=== PATIENT | female | born 1985 | race American Indian/Alaskan Native ===

== ENCOUNTER 2016-12-27 13:21 | Emergency (ER) | payer SELFPAY ==
[2016-12-27 13:29] VITALS: BP 139/88
[2016-12-27] MEDS ORDERED: BENADRYL IM ONE (17:58)
[2016-12-27] MEDS ORDERED: BOOSTRIX IM ONE (17:58)
--- NOTE | 2016-12-27 18:03 | Emergency Department Report ---
ED General Adult HPI - General Chief complaint: Skin/Abscess/Foreign Body Stated complaint: POSS SPIDER BITE Time Seen by Provider: 12/27/16 17:38 Source: patient Mode of arrival: Ambulatory Limitations: No Limitations - History of Present Illness Initial comments: PT states she was seen last year for this and she was dx with bed bugs. PT states her and her boyfriend and their baby live in a hotel. PT states she is the only one who keeps breaking out in rashes. Pt states she is scratching until she bleeds and sometimes the spots have yellow drainage. PT denies use of drugs. PT denies currently being treated with antibiotics. MD Complaint: rash/ itching Onset/Timin -: Gradual, month(s) Location: abdomen, upper extremity, lower extremity Radiation: non-radiation Severity scale (0 -10): 0 Quality: other (itchy, manning when scratched ) Consistency: intermittent Improves with: none Worsens with: none Associated Symptoms: denies: chest pain, fever/chills, nausea/vomiting Treatments Prior to Arrival: none - Related Data Previous Rx's Medication Instructions Recorded Last Taken Type ALBUTEROL Inhaler [ProAir HFA 2 puff IH QID PRN #1 inhalation 12/22/13 Unknown Rx Inhaler] Ciprofloxacin HCl [Ciprofloxacin 500 mg PO BID #14 tablet 03/24/14 Unknown Rx TAB] HYDROcodone/APAP 7.5-325 [[place] 1 each PO Q6HR PRN #30 tablet 06/21/14 Unknown Rx 7.5/325 mg] Acetaminophen/Codeine [Tylenol #3] 1 tab PO Q6H PRN #15 tab 01/26/15 Unknown Rx Cephalexin [Keflex] 500 mg PO BID #14 capsule 01/26/15 Unknown Rx Ibuprofen [Motrin 600 MG tab] 600 mg PO Q8H PRN #50 tablet 03/11/15 Unknown Rx metroNIDAZOLE [Flagyl] 500 mg PO BID #20 tablet 03/11/15 Unknown Rx Diazepam Tab [Valium] 5 mg PO QHS PRN #3 tab 08/25/16 Unknown Rx Permethrin 5% [Acticin 5% CREAM] 1 applicatio TP ONCE #1 tube 08/25/16 Unknown Rx hydrOXYzine PAMOATE [Vistaril] 50 mg PO Q6HR PRN #15 capsule 08/25/16 Unknown Rx Allergies Allergy/AdvReac Type Severity Reaction Status Date / Time No Known Allergies Allergy Verified 08/25/16 07:38 ED Review of Systems ROS: Stated complaint: POSS SPIDER BITE Other details as noted in HPI Comment: All other systems reviewed and negative Constitutional: denies: fever Gastrointestinal: denies: abdominal pain, nausea, vomiting Genitourinary: other (bleeding, last day of cycle today ) Skin: as per HPI, rash ED Past Medical Hx - Past Medical History Hx Psychiatric Treatment: Yes (ANXIETY) Hx Asthma: Yes Additional medical history: fibroid - Surgical History Past Surgical History?: No - Social History Smoking Status: Current Every Day Smoker Substance Use Type: None - Medications Home Medications: Home Medications Medication Instructions Recorded Confirmed Last Taken Type ALBUTEROL Inhaler [ProAir HFA 2 puff IH QID PRN #1 inhalation 12/22/13 Unknown Rx Inhaler] Ciprofloxacin HCl [Ciprofloxacin 500 mg PO BID #14 tablet 03/24/14 Unknown Rx TAB] HYDROcodone/APAP 7.5-325 [[place] 1 each PO Q6HR PRN #30 tablet 06/21/14 Unknown Rx 7.5/325 mg] Acetaminophen/Codeine [Tylenol #3] 1 tab PO Q6H PRN #15 tab 01/26/15 Unknown Rx Cephalexin [Keflex] 500 mg PO BID #14 capsule 01/26/15 Unknown Rx Ibuprofen [Motrin 600 MG tab] 600 mg PO Q8H PRN #50 tablet 03/11/15 Unknown Rx metroNIDAZOLE [Flagyl] 500 mg PO BID #20 tablet 03/11/15 Unknown Rx Diazepam Tab [Valium] 5 mg PO QHS PRN #3 tab 08/25/16 Unknown Rx Permethrin 5% [Acticin 5% CREAM] 1 applicatio TP ONCE #1 tube 08/25/16 Unknown Rx hydrOXYzine PAMOATE [Vistaril] 50 mg PO Q6HR PRN #15 capsule 08/25/16 Unknown Rx ED Physical Exam - General Limitations: No Limitations General appearance: alert, in no apparent distress - Head Head exam: Present: atraumatic, normocephalic - Eye Eye exam: Present: normal appearance - ENT ENT exam: Present: normal exam, normal external ear exam - Neck Neck exam: Present: normal inspection, full ROM. Absent: tenderness - Respiratory Respiratory exam: Present: normal lung sounds bilaterally. Absent: respiratory distress, wheezes, chest wall tenderness - Cardiovascular Cardiovascular Exam: Present: regular rate, normal heart sounds - GI/Abdominal GI/Abdominal exam: Present: soft. Absent: tenderness - Extremities Exam Extremities exam: Present: full ROM, normal capillary refill. Absent: tenderness - Neurological Exam Neurological exam: Present: alert, oriented X3 - Psychiatric Psychiatric exam: Present: normal affect - Skin Skin exam: Present: warm, dry, other (pt appears to have bed bug bites to upper and lower ext. multiple areas excoriated with broken skin, no surrounding cellulitis noted) ED Course Vital Signs 12/27/16 13:25 Temperature 97.8 F Pulse Rate 109 H Respiratory 18 Rate Blood Pressure 139/88 O2 Sat by Pulse 100 Oximetry - Reevaluation(s) Reevaluation #1: 12/27/16 18:06 PT has no rash to palms or finger webbing. No close contacts with similar rash. rash is difficult to exam due to how much pt has scratched. multiple areas of broken skin. will up date pt's td vaccine and treat her pruritus with Benadryl. PT aware that rash is concerning for bed bugs. PT has a hx of bed bugs and states it feels the same. - Pulse Oximetry Interpretation Digit-Finger Initial Pulse Oximetry Readin Actions Taken: none ED Medical Decision Making - Differential Diagnosis scabies, bed bugs, urticaria Critical care attestation.: If time is entered above; I have spent that time in minutes in the direct care of this critically ill patient, excluding procedure time. ED Disposition Clinical Impression: Rash and nonspecific skin eruption Bed bug bite Qualifiers: Encounter type: initial encounter Qualified Code(s): W57.XXXA - Bitten or stung by nonvenomous insect and other nonvenomous arthropods, initial encounter Disposition: DISCHARGED TO HOME OR SELFCARE Is pt being admited?: No Does the pt Need Aspirin: No Condition: Stable Instructions: Insect Bite or Sting (ED) Additional Instructions: Wash bedding Sleep in long sleeves and long pants Follow up with PCP in 2-3 days No driving or ETOH with Vistaril Referrals: PRIMARY CARE,MD [Primary Care Provider] - 3-5 Days
== END 2016-12-27 18:22 | disposition home or self-care (01) ==
LOC: ED 13:21
DX: R21 Rash and other nonspecific skin eruption (principal); F41.9 Anxiety disorder, unspecified; J45.909 Unspecified asthma, uncomplicated; F17.200 Nicotine dependence, unspecified, uncomplicated; W57.XXXA Bitten or stung by nonvenomous insect and other nonvenomous arthropods, initial encounter; Y92.89 Other specified places as the place of occurrence of the external cause
CPT/HCPCS: 90471; 90715; 96372; 99282; J1200

== ENCOUNTER 2017-01-20 20:23 | Emergency (ER) | payer SELFPAY ==
[2017-01-20 22:24] VITALS: BP 128/98
[2017-01-21] MEDS ORDERED: DECADRON IM STA (02:23)
--- NOTE | 2017-01-21 02:23 | Emergency Department Report ---
- General Chief complaint: Skin Rash Stated complaint: BED BUGS Time Seen by Provider: 01/21/17 01:55 Source: patient, family Mode of arrival: Ambulatory Limitations: No Limitations - History of Present Illness Initial comments: Patient here complaining off rash in her arms or legs and all over her body and feces retention. She denies any pain. She said the pain going on for over a year and she's been seen here and he told that she has scabies she did see her. Prateek and he told that she had bedbugs. She never followed up with escalator attendant pain is 0 out of 10. Patient is not having any wheezing, cough and difficulty breathing, chest pain or shortness of breath. She was placed on antibiotic on 12/27/16 along with hydroxyzine December 27, 2016. Patient says she is itching area and is causing it to be worse. She says she doesn't have any idea if she has bedbugs in her house. MD complaint: rash, other (itching) Onset/Timin -: year(s) Tetanus Up to Date: yes Location: generalized Severity scale (0 -10): 0 Context: none Associated symptoms: denies other symptoms Treatments Prior to Arrival: OTC topical medication - Related Data Previous Rx's Medication Instructions Recorded Last Taken Type ALBUTEROL Inhaler [ProAir HFA 2 puff IH QID PRN #1 inhalation 12/22/13 Unknown Rx Inhaler] Cephalexin [Keflex] 500 mg PO Q6HR #40 capsule 12/27/16 Unknown Rx hydrOXYzine PAMOATE [Vistaril] 25 mg PO Q6HR PRN #24 capsule 01/21/17 Unknown Rx methylPREDNISolone [Medrol] 4 mg PO QAM #1 tab.ds.pk 01/21/17 Unknown Rx Allergies Allergy/AdvReac Type Severity Reaction Status Date / Time No Known Allergies Allergy Verified 08/25/16 07:38 Abscess Boil HPI - HPI Chief Complaint: Skin Rash Stated Complaint: BED BUGS Time Seen by Provider: 01/21/17 01:55 Home Medications: Previous Rx's Medication Instructions Recorded Last Taken Type ALBUTEROL Inhaler [ProAir HFA 2 puff IH QID PRN #1 inhalation 12/22/13 Unknown Rx Inhaler] Cephalexin [Keflex] 500 mg PO Q6HR #40 capsule 12/27/16 Unknown Rx hydrOXYzine PAMOATE [Vistaril] 25 mg PO Q6HR PRN #24 capsule 01/21/17 Unknown Rx methylPREDNISolone [Medrol] 4 mg PO QAM #1 tab.ds.pk 01/21/17 Unknown Rx Allergies/Adverse Reactions: Allergies Allergy/AdvReac Type Severity Reaction Status Date / Time No Known Allergies Allergy Verified 08/25/16 07:38 ED Review of Systems ROS: Stated complaint: BED BUGS Other details as noted in HPI Comment: All other systems reviewed and negative Constitutional: denies: chills, fever, malaise ENT: denies: throat pain, congestion Respiratory: no symptoms reported Cardiovascular: denies: chest pain, palpitations, edema, syncope Gastrointestinal: denies: abdominal pain, nausea, vomiting Skin: rash, lesions, pruritus Neurological: denies: headache ED Past Medical Hx - Past Medical History Previous Medical History?: Yes Hx Psychiatric Treatment: Yes (ANXIETY) Hx Asthma: Yes Additional medical history: fibroid. Chronic rash - Surgical History Past Surgical History?: No - Family History Family history: hypertension - Social History Smoking Status: Current Every Day Smoker Substance Use Type: None - Medications Home Medications: Home Medications Medication Instructions Recorded Confirmed Last Taken Type ALBUTEROL Inhaler [ProAir HFA 2 puff IH QID PRN #1 inhalation 12/22/13 Unknown Rx Inhaler] Cephalexin [Keflex] 500 mg PO Q6HR #40 capsule 12/27/16 Unknown Rx hydrOXYzine PAMOATE [Vistaril] 25 mg PO Q6HR PRN #24 capsule 01/21/17 Unknown Rx methylPREDNISolone [Medrol] 4 mg PO QAM #1 tab.ds.pk 01/21/17 Unknown Rx ED Physical Exam - General Limitations: No Limitations General appearance: alert, in no apparent distress - Head Head exam: Present: atraumatic, normocephalic, normal inspection - Eye Eye exam: Present: normal appearance, PERRL, EOMI Pupils: Present: normal accommodation - ENT ENT exam: Present: normal exam, normal orophraynx, mucous membranes moist, TM's normal bilaterally, normal external ear exam - Neck Neck exam: Present: normal inspection, tenderness, full ROM. Absent: meningismus, lymphadenopathy - Respiratory Respiratory exam: Present: normal lung sounds bilaterally. Absent: respiratory distress, wheezes, rales, rhonchi, stridor, chest wall tenderness - Cardiovascular Cardiovascular Exam: Present: regular rate, normal rhythm, normal heart sounds - GI/Abdominal GI/Abdominal exam: Present: soft, normal bowel sounds. Absent: distended, tenderness, guarding, rebound, rigid - Extremities Exam Extremities exam: Present: normal inspection, full ROM, normal capillary refill. Absent: tenderness, pedal edema, joint swelling, calf tenderness - Neurological Exam Neurological exam: Present: alert, oriented X3, normal gait, reflexes normal. Absent: motor sensory deficit - Psychiatric Psychiatric exam: Present: normal affect, normal mood - Skin Skin exam: Present: warm, dry, rash. Absent: erythema, urticaria - Expanded Skin Exam Expanded Type of lesion: Present: rash Distribution of rash: thorax, chest, back, abdomen, RUE, LUE, RLE, LLE Description of rash: Present: other (Diachlor on spot spices scattered to the thorax, chest, back, abdomen right upper and lower and left upper extremity. No signs of infection noted.). Absent: tenderness, erythematous, swelling, vesicular, blisters, urticarial, crusting, discharge, fluctuant, indurated ED Course Vital Signs 01/20/17 01/21/17 22:18 04:46 Temperature 98 F Pulse Rate 103 H 98 H Respiratory 20 18 Rate Blood Pressure 128/98 Blood Pressure 128/98 [Left] O2 Sat by Pulse 100 Oximetry - Reevaluation(s) Reevaluation #1: 01/21/17 04:03 Patient given Decadron 10 mg IM and emergency room to help with itching. ED Medical Decision Making - Medical Decision Making ED course: Given Decadron 10 mg IM to help condition. Patient has been referred to escalator attendant several times as she has not gone. Discussed with patient that she needs to escalator attendant in 2-3 days for follow-up chronic rash and itching. Patient was understanding of need for follow-up. Patient given prescription for prednisone and Atarax. Home in stable condition. Critical care attestation.: If time is entered above; I have spent that time in minutes in the direct care of this critically ill patient, excluding procedure time. ED Disposition Clinical Impression: Rash and nonspecific skin eruption, Pruritus and related conditions Disposition: DISCHARGED TO HOME OR SELFCARE Is pt being admited?: No Does the pt Need Aspirin: No Condition: Stable Instructions: Contact Dermatitis (ED), Itchy Skin (ED) Additional Instructions: Please keep affected area clean and dry. Medication as prescribed and note that Atarax can cause drowsiness. He is to not drive or operate heavy machinery while taking Atarax Follow up with escalator attendant as instructed Prescriptions: hydrOXYzine PAMOATE [Vistaril] 25 mg PO Q6HR PRN #24 capsule PRN Reason: Itching methylPREDNISolone [Medrol] 4 mg PO QAM #1 tab.ds.pk Referrals: MARTHA LUEVANO MD [Staff Physician] - 2-3 Days [facility] [Outside] - 2-3 Days Forms: Work/School Release Form(ED)
== END 2017-01-21 04:48 | disposition home or self-care (01) ==
LOC: ED 20:23
DX: L29.9 Pruritus, unspecified (principal); F41.9 Anxiety disorder, unspecified; J45.909 Unspecified asthma, uncomplicated; F17.200 Nicotine dependence, unspecified, uncomplicated; D21.9 Benign neoplasm of connective and other soft tissue, unspecified; Z79.899 Other long term (current) drug therapy
CPT/HCPCS: 96372; 99282; J1100

== ENCOUNTER 2017-02-10 20:16 | Emergency (ER) | payer SELFPAY ==
[2017-02-10] MEDS ORDERED: TYLENOL ONE (22:38)
[2017-02-10] MEDS ORDERED: TYLENOL PO ONE (22:41)
[2017-02-11 00:13] VITALS: BP 107/77
[2017-02-11] MEDS ORDERED: XYLOCAINE 1%/ EPI 1:100,000 INFILTRATI ONE (02:16)
--- NOTE | 2017-02-11 02:25 | Emergency Department Report ---
Abscess Boil HPI - HPI Chief Complaint: Skin/Abscess/Foreign Body Stated Complaint: INSECT BITE Duration: 2 Days Location: Head Severity: Mild History: Yes Pain, No Fever, No Purulent Drainage, No Numbness, No Foreign Body , No Previous History, No Insect Bite HPI: 31 year old female presents to ED with simple abscess on right side of forehead. patient states she is currently on day 2 of bactrim prescription which she got from [facility]. patient is stable, neurologically intact and in no acute distress. Home Medications: Previous Rx's Medication Instructions Recorded Last Taken Type ALBUTEROL Inhaler [ProAir HFA 2 puff IH QID PRN #1 inhalation 12/22/13 Unknown Rx Inhaler] Cephalexin [Keflex] 500 mg PO Q6HR #40 capsule 12/27/16 Unknown Rx hydrOXYzine PAMOATE [Vistaril] 25 mg PO Q6HR PRN #24 capsule 01/21/17 Unknown Rx methylPREDNISolone [Medrol] 4 mg PO QAM #1 tab.ds.pk 01/21/17 Unknown Rx Allergies/Adverse Reactions: Allergies Allergy/AdvReac Type Severity Reaction Status Date / Time No Known Allergies Allergy Verified 08/25/16 07:38 ED Review of Systems ROS: Stated complaint: INSECT BITE Other details as noted in HPI Constitutional: denies: chills, fever Eyes: denies: eye pain, eye discharge, vision change ENT: denies: ear pain, throat pain Respiratory: denies: cough, shortness of breath, wheezing Cardiovascular: denies: chest pain, palpitations Endocrine: no symptoms reported Gastrointestinal: denies: abdominal pain, nausea, diarrhea Genitourinary: denies: urgency, dysuria, discharge Musculoskeletal: denies: back pain, joint swelling, arthralgia Skin: denies: rash, lesions Neurological: denies: headache, weakness, paresthesias Psychiatric: denies: anxiety, depression Hematological/Lymphatic: denies: easy bleeding, easy bruising ED Past Medical Hx - Past Medical History Hx Psychiatric Treatment: Yes (ANXIETY) Hx Asthma: Yes Additional medical history: fibroid. Chronic rash - Social History Smoking Status: Current Some Day Smoker Substance Use Type: None - Medications Home Medications: Home Medications Medication Instructions Recorded Confirmed Last Taken Type ALBUTEROL Inhaler [ProAir HFA 2 puff IH QID PRN #1 inhalation 12/22/13 Unknown Rx Inhaler] Cephalexin [Keflex] 500 mg PO Q6HR #40 capsule 12/27/16 Unknown Rx hydrOXYzine PAMOATE [Vistaril] 25 mg PO Q6HR PRN #24 capsule 01/21/17 Unknown Rx methylPREDNISolone [Medrol] 4 mg PO QAM #1 tab.ds.pk 01/21/17 Unknown Rx ED Abscess Boil Physical Exam - Exam General: Vital signs noted. No distress. Alert and acting appropriately. Size: 2 cm Exam: Yes Tenderness, Yes Fluctuance, Yes Normal Neurologic Exam, Yes Normal Circulation, No Surrounding Cellulites/Erythema, No Lymphangitis, No Crepitation , No Heart Murmur I & D Note - I & D Note I & D Note: Area cleaned with betadine and irrigated with 50cc's of normal saline. Area of abscess injected with 5cc's of lidocaine 1% with epi. Patient could not tolerate pain during procedure and requested that provider stop. Abscess was not incised or drained. ED Course Vital Signs 02/10/17 02/11/17 22:29 00:12 Temperature 98.6 F 97.7 F Pulse Rate 91 H 68 Respiratory 18 18 Rate Blood Pressure 119/82 Blood Pressure 119/82 107/77 [Left] O2 Sat by Pulse 99 98 Oximetry Critical care attestation.: If time is entered above; I have spent that time in minutes in the direct care of this critically ill patient, excluding procedure time. ED Medical Decision Making - Medical Decision Making 31 year old female presents to ED with right sided forehead abscess. Patient could not tolerate I&D procedure and states she will continue her antibiotics previously prescribed (Bactrim by [facility]). I have notified patient that she should return for I&D if symptoms worsen during the course of her outpatient antibiotics. Patient fully understands. patient is stable, neurologically intact and in no acute distress. ED Disposition Clinical Impression: Abscess Disposition: DISCHARGED TO HOME OR SELFCARE Is pt being admited?: No Does the pt Need Aspirin: No Condition: Stable Instructions: Abscess (ED) Additional Instructions: Return to ED if abscess worsens. Please continue taking full course of antibiotics previously prescribed to you. Referrals: PRIMARY CARE, [Primary Care Provider] - 3-5 Days Forms: Work/School Release Form(ED)
[2017-02-11] MEDS ORDERED: TORADOL IM ONE (03:11)
[2017-02-11] MEDS ORDERED: NORCO 5/325 PO ONE ×2 (03:11→05:27)
[2017-02-11] MEDS ORDERED: ULTRAM PO ONE (03:12)
[2017-02-11] MEDS ORDERED: NORCO 5/325 ONE (05:25)
== END 2017-02-11 05:35 | disposition home or self-care (01) ==
LOC: ED 20:16
DX: L02.01 Cutaneous abscess of face (principal); J45.909 Unspecified asthma, uncomplicated; F41.9 Anxiety disorder, unspecified; F17.200 Nicotine dependence, unspecified, uncomplicated
CPT/HCPCS: 81025; 96372; 99283; J1885